=== PATIENT | female | born 1965 | race Caucasian/White ===

== ENCOUNTER → 2018-02-12 11:54 | Outpatient (CLI) | payer OTHER, SELFPAY ==
[2018-02-12 12:43] LABS: Add Manual Diff / Slide Review NO; Basophils Percent Auto 0.6 % (0-2); Eosinophils Percent Auto 1.9 % (2-4); Hematocrit 38.5 % (36-46); Lymphocytes Percent Auto 33.6 % (25-40); Mean Corpuscular HGB Conc 33.7 % (30-36); Mean Corpuscular Hemoglobin 28.2 PG (26-34); Mean Corpuscular Volume 83.8 fL (80-100); Monocytes Percent Auto 5.7 % (3-14); Neutrophils Absolute Auto 5400 /uL (3000-5900); Neutrophils Percent Auto 58.2 % (50-75); Platelet Count 240 X10^3/uL (150-400); Red Blood Cell Count 4.59 X10^6/uL (4.0-5.2); Red Cell Distribution Width 13.8 % (11.6-14.8); White Blood Cell Count 9.3 X10^3/uL (4.5-11.0)
== END ==
PROVIDERS: Family Provider Family Medicine; PCP Family Medicine; Visit Provider Orthopaedic Surgery Foot and Ankle Surgery
DX: S92.321A Displaced fracture of second metatarsal bone, right foot, initial encounter for closed fracture (principal); Z01.812 Encounter for preprocedural laboratory examination; Z01.818 Encounter for other preprocedural examination
CPT/HCPCS: 36415; 85025

== ENCOUNTER → 2018-05-17 11:38 | Outpatient (CLI) | payer OTHER, SELFPAY ==
[2018-05-17 12:34] LABS: Add Manual Diff / Slide Review NO; Basophils Percent Auto 0.8 % (0-2); Eosinophils Percent Auto 1.9 % (2-4); Hematocrit 40.1 % (36-46); Hemoglobin 13.5 g/dL (12.0-16.0); Lymphocytes Percent Auto 25.6 % (25-40); Mean Corpuscular HGB Conc 33.6 % (30-36); Mean Corpuscular Hemoglobin 28.1 PG (26-34); Mean Corpuscular Volume 83.7 fL (80-100); Neutrophils Absolute Auto 7000 /uL (3000-5900); Neutrophils Percent Auto 66.7 % (50-75); Platelet Count 242 X10^3/uL (150-400); Red Blood Cell Count 4.79 X10^6/uL (4.0-5.2); Red Cell Distribution Width 13.9 % (11.6-14.8); White Blood Cell Count 10.5 X10^3/uL (4.5-11.0)
[2018-05-17 12:59] LABS: Alanine Aminotransferase 24 IU/L (9-52); Albumin 4.7 g/dL (3.5-5.0); Albumin Globulin Ratio 1.7 (1.0-2.8); Alkaline Phosphatase 131 U/L (38-126); Aspartate Aminotransferase 23 IU/L (14-36); BUN Creatinine Ratio 17.5 (6-22); Bilirubin Total 0.6 mg/dL (0.2-1.3); Blood Urea Nitrogen 14 mg/dL (7-17); Calcium 9.7 mg/dL (8.4-10.2); Carbon Dioxide 31 mmol/L (22-32); Chloride 103 mmol/L (98-107); Cholesterol 156 mg/dL (140-199); Estimated Glomerular Filt Rate > 60.0 mL/min (>60); Globulin 2.8 g/dL (1.7-4.1); Glucose 101 mg/dL (70-100); HDL Cholesterol 58 mg/dL (40-60); HEMOLYSIS < 15 (0-50); LDL Cholesterol Calculated 74 mg/dL (<100); Potassium 3.9 mmol/L (3.4-5.1); Sodium 145 mmol/L (137-145); Total Protein 7.5 g/dL (6.3-8.2); Triglycerides 120 mg/dL (35-150)
[2018-05-17 13:30] LABS: Thyroid Stimulating Hormone 3.07 uIU/mL (0.47-4.68)
== END ==
PROVIDERS: Family Provider Family Medicine; PCP Family Medicine; Visit Provider Family Medicine
DX: Z00.00 Encounter for general adult medical examination without abnormal findings (principal)
CPT/HCPCS: 36415; 80053; 80061; 84443; 85025

== ENCOUNTER → 2018-06-10 15:07 | Outpatient (CLI) | payer OTHER, SELFPAY | PROVIDERS: PCP Family Medicine; Visit Provider Family Medicine | DX: M85.88 Other specified disorders of bone density and structure, other site (principal); Z78.0 Asymptomatic menopausal state; Z82.62 Family history of osteoporosis; Z85.3 Personal history of malignant neoplasm of breast | CPT/HCPCS: 77080 ==

== ENCOUNTER → 2018-07-20 15:46 | Outpatient (CLI) | payer OTHER, SELFPAY | PROVIDERS: PCP Family Medicine | DX: Z23 Encounter for immunization (principal) | CPT/HCPCS: 90471; 90686 ==

== ENCOUNTER → 2020-07-25 14:21 | Outpatient (CLI) | payer OTHER, SELFPAY ==
[2020-07-25 15:00] LABS: COVID19 -Nasal RAPID Negative (Negative)
== END ==
PROVIDERS: PCP Family Medicine; Visit Provider Nurse Practitioner
DX: Z11.59 Encounter for screening for other viral diseases (principal)
CPT/HCPCS: 87635

== ENCOUNTER → 2020-09-18 16:25 | Outpatient (CLI) | payer OTHER, SELFPAY ==
[2020-09-18] MEDS: COVID-19 VACC(MODERNA-1)/PF 100 MCG/0.5 ML VIAL IM (16:31)
== END ==
PROVIDERS: PCP Family Medicine; Visit Provider Internal Medicine
DX: Z23 Encounter for immunization (principal)
CPT/HCPCS: 0011A; 91301

== ENCOUNTER → 2020-10-15 16:04 | Outpatient (CLI) | payer OTHER, SELFPAY ==
[2020-10-15] MEDS: COVID-19 VACC #2, MRNA(MOD) 100 MCG/0.5 ML VIAL IM (16:11)
== END ==
PROVIDERS: PCP Family Medicine; Visit Provider Internal Medicine
DX: Z23 Encounter for immunization (principal)
CPT/HCPCS: 0012A; 91301

== ENCOUNTER → 2022-09-12 13:13 | Outpatient (CLI) | payer OTHER, SELFPAY | PROVIDERS: PCP Family Medicine; Referring Provider Internal Medicine; Visit Provider Internal Medicine | DX: Z23 Encounter for immunization (principal) | CPT/HCPCS: 90471; 90686 ==

== ENCOUNTER → 2022-12-31 12:22 | Outpatient (CLI) | payer OTHER, SELFPAY ==
[2022-12-31 12:55] LABS: Add Manual Diff / Slide Review NO; Basophils Absolute Auto 100 /uL (0-100); Eosinophils Absolute Auto 200 /uL (0-450); Eosinophils Percent Auto 2.3 % (2-4); Hematocrit 41.2 % (36-46); Hemoglobin 13.9 g/dL (12.0-16.0); Lymphocytes Absolute Auto 2900 /uL (1100-4500); Lymphocytes Percent Auto 33.3 % (25-40); Mean Corpuscular HGB Conc 33.6 % (30-36); Mean Corpuscular Hemoglobin 27.6 PG (26-34); Mean Corpuscular Volume 82.2 fL (80-100); Monocytes Absolute Auto 500 /uL (0-900); Monocytes Percent Auto 6.2 % (3-14); Neutrophils Absolute Auto 4900 /uL (1500-7000); Neutrophils Percent Auto 57.2 % (50-75); Platelet Count 252 X10^3/uL (150-400); Red Blood Cell Count 5.01 X10^6/uL (4.0-5.2); Red Cell Distribution Width 13.8 % (11.6-14.8); White Blood Cell Count 8.6 X10^3/uL (4.5-11.0)
[2022-12-31 13:26] LABS: Alanine Aminotransferase 24 IU/L (<35); Albumin 4.6 g/dL (3.5-5.0); Albumin Globulin Ratio 1.4 (1.0-2.8); Alkaline Phosphatase 123 U/L (38-126); Aspartate Aminotransferase 24 IU/L (14-36); BUN Creatinine Ratio 23.5 (6-22); Bilirubin Total 0.5 mg/dL (0.2-1.3); Blood Urea Nitrogen 19 mg/dL (7-17); Calcium 9.5 mg/dL (8.4-10.2); Carbon Dioxide 30 mmol/L (22-32); Chloride 103 mmol/L (98-107); Cholesterol 205 mg/dL (140-199); Estimated Glomerular Filt Rate > 60 mL/min (>60); Globulin 3.2 g/dL (1.7-4.1); Glucose 104 mg/dL (70-100); HDL Cholesterol 57 mg/dL (40-60); HEMOLYSIS < 15 (0-50); LDL Cholesterol Calculated 111 mg/dL (<100); Potassium 3.6 mmol/L (3.4-5.1); Sodium 140 mmol/L (137-145); Total Protein 7.8 g/dL (6.3-8.2); Triglycerides 187 mg/dL (35-150)
[2022-12-31 14:44] LABS: Appearance Urine UA CLEAR; Bilirubin Urine UA NEGATIVE (NEGATIVE); Color Urine UA YELLOW; Glucose Urine UA NEGATIVE (Negative); Ketones Urine UA NEGATIVE (NEGATIVE); Leukocyte Esterase Urine UA NEGATIVE (NEGATIVE); Nitrite Urine UA NEGATIVE (Negative); Occult Blood Urine UA NEGATIVE (Negative); Protein Urine UA NEGATIVE (Negative); Specific Gravity Urine UA >=1.030 (1.000-1.035); Urobilinogen Urine UA 0.2 E.U./dL (0.2)
[2022-12-31 14:47] LABS: RBC Urine None Seen (0-5/HPF); WBC Urine None Seen (0-5/HPF)
[2022-12-31 14:48] LABS: Bacteria Urine None Seen; Culture Indicated Urine Cult Not Indicated; Urine Comments Microscopic Normal
== END ==
PROVIDERS: PCP Physician Assistant; Referring Provider Physician Assistant; Visit Provider Physician Assistant
DX: R73.01 Impaired fasting glucose (principal); Z13.220 Encounter for screening for lipoid disorders; Z13.29 Encounter for screening for other suspected endocrine disorder
CPT/HCPCS: 36415; 80053; 80061; 81001; 84443; 85025

== ENCOUNTER → 2023-07-02 | Outpatient (CLI) | payer OTHER, SELFPAY | PROVIDERS: PCP Physician Assistant; Referring Provider Family Medicine; Visit Provider Family Medicine | DX: Z23 Encounter for immunization (principal) | CPT/HCPCS: 90471; 90686 ==

== ENCOUNTER → 2024-07-28 | Outpatient (CLI) | payer OTHER, SELFPAY | PROVIDERS: PCP Physician Assistant; Referring Provider Internal Medicine; Visit Provider Internal Medicine | DX: Z23 Encounter for immunization (principal) | CPT/HCPCS: 90471; 90656 ==

== ENCOUNTER 2024-10-11 23:48 | Emergency (ER) | payer OTHER, SELFPAY ==
[2024-10-11 23:56] VITALS: PULSE 77; O2SAT 100
[2024-10-12] VITALS (8 sets, daily range): BP systolic 110–181; BP diastolic 73–91; PULSE 74–83; RESP 18; TEMP 36.4; O2SAT 94–100; BMI 27.3
--- NOTE | 2024-10-12 00:02 | DI.US.S_ITS ---
PROCEDURE: US ABDOMEN LIMITED INDICATIONS: RUQ pain TECHNIQUE: Real-time scanning was performed of the abdominal and retroperitoneal organs, with image documentation. COMPARISON: None. FINDINGS: Liver: Liver is normal in size and homogeneous in echotexture. Gallbladder: Cholelithiasis. No wall thickening. No pericholecystic edema. Negative sonographic Galeano's sign. Biliary ducts: Intrahepatic bile ducts are non-dilated. Extrahepatic bile duct caliber measures 5.0 mm. Normal is 6-7 mm or less in diameter, or 10 mm or less post-cholecystectomy. Pancreas: Visualized portions of the pancreas are sonographically normal. Miscellaneous: No free abdominal fluid. IMPRESSION: Cholelithiasis without sonographic evidence of acute cholecystitis. Approved by: Halina Gomez M.D.,Ph.D. on 10/12/2024 at 0:49
--- NOTE | 2024-10-12 00:02 | ED.ABDPAIN ---
HPI - Abdominal Pain General Chief Complaint: Abdominal Pain Stated Complaint: abd pain Time Seen by Provider: 10/11/24 23:57 Source: patient, EMS, RN notes reviewed and old records reviewed Mode of arrival: EMS Limitations: no limitations History of Present Illness HPI narrative: 58-year-old female on Lexapro and Prilosec presents with complaint of abdominal pain describes sort of epigastric radiating across the right and left upper quadrants. Did have a little bit up towards the chest but states it is currently just localized and right and left upper quadrants but more in the right. Patient states was awake but lying in bed when pain kind of came suddenly onset peaked started improve a little bit but was quite intense. They did not have a similar episode 2 or 3 days ago but not as intense. Patient states he was nauseated but did not have any vomiting. No fevers or chills. No chest pain or shortness of breath currently. No issues with bowel movements or urination. Patient states takes Lexapro and Prilosec but no other daily medications. Has had prior bilateral mastectomy for breast cancer remotely, shoulder surgery, bilateral oophorectomy. No reported drug allergies. No tobacco, no regular alcohol, no recreational drugs. Patient received 50 mcg of fentanyl EN route which they have found helpful states still feels like they have done a ton of sit-ups but otherwise feels improved. Related Data Home Medications Medication Instructions Recorded Confirmed clonidine HCl 0.1 mg tablet 0.1 mg PO BID #0 tabs 06/15/13 08/07/24 escitalopram oxalate 10 mg tablet 10 mg PO QDAY ##0 07/13/17 08/07/24 (Lexapro) omeprazole 40 mg capsule,delayed 20 mg PO Q DAY ##0 07/13/17 08/07/24 release Previous Rx's Medication Instructions Recorded methocarbamol 500 mg tablet 500 mg PO TID PRN Back pain, 12/18/23 muscle spasms #30 tabs methylprednisolone 4 mg tablets in See Rx Instructions PO PER PKG DIR 12/18/23 a dose pack (Medrol (Rubens)) #21 ea estradiol 2 mg (7.5 mcg/24 hour) 1 vag ring vaginal [id number] #1 ea 02/14/24 vaginal ring (Estring) amoxicillin 875 mg-potassium 1 tab PO BID #20 tabs 08/07/24 clavulanate 125 mg tablet hydrocodone 5 mg-acetaminophen 325 1 tab PO Q6H PRN pain #10 tabs 10/12/24 mg tablet Allergies Allergy/AdvReac Type Severity Reaction Status Date / Time oxycodone [From PERCOCET] Allergy Intermediate Verified 10/12/24 01:17 soy Allergy Mild Verified 10/12/24 01:17 Anesthetics - Amide Type - AdvReac Severe SENSITIVE Verified 10/12/24 01:17 Select A [Anesthetics - Amide Type] Anesthetics - Michelle Type- AdvReac Severe SENSITIVE Verified 10/12/24 01:17 Parabens [Anesthetics - Michelle Type] Review of Systems Review of Systems ROS Unobtainable: All systems reviewed & are unremarkable except as noted in HPI and below Patient History Social History Smoking Status: Never smoker Smoking Status: Never smoker Exam Narrative Exam Narrative: GENERAL: Alert and oriented x three, female in mild distress HEENT: Head normocephalic, atraumatic, EOMI, pupils reactive, face symmetric, moist mucous membranes NECK: Supple, full range of motion CARDIOVASCULAR: Regular rate and rhythm without murmurs, rubs or gallops. RESPIRATORY: Breath sounds equal bilaterally, no wheezes rales or rhonchi. ABDOMEN: Soft, positive for right upper quadrant tenderness. Normoactive bowel sounds all 4 quadrants. No guarding or rebound, rigidity, no mass : No CVA tenderness EXTREMITIES: Normal range of motion, no clubbing or edema. Neurovascularly intact NEUROLOGICAL: Cranial nerves II through XII grossly intact. Moving all extremities SKIN: Warm, dry, no petechiae, no rashes or lesions. Initial Vital Signs Initial Vital Signs: Vital Signs Pulse Rate 77 10/11/24 23:56 Pulse Oximetry 100 10/11/24 23:56 Course Orders Ordered: ED Orders 10/12/24 00:02 US abdomen limited Stat Complete Blood Count AUTO DIFF Stat Comprehensive Metabolic Panel Stat Lipase Stat Troponin & CK Cardiac Panel Stat EKG-12 Lead Stat 10/12/24 01:42 Trop I [Troponin I] Stat Discontinued Medications Hydrocodone Bitart/Acetaminophen (Hydrocodone/Acet 5/325 Prepack) 1 bottle MISC DIRECTED ONE Stop: 10/12/24 03:06 Last Admin: 10/12/24 03:09 Dose: 1 bottle Ketorolac Tromethamine (Ketorolac 30 Mg/Ml Vial) 15 mg IV NOW ONE Stop: 10/12/24 00:43 Last Admin: 10/12/24 00:47 Dose: 15 mg Documented By: THONG Morphine Sulfate (Morphine 4 Mg/Ml Inj) 4 mg IV NOW ONE Stop: 10/12/24 01:08 Last Admin: 10/12/24 01:11 Dose: 4 mg Documented By: THONG Ondansetron HCl (Ondansetron 4 Mg/2 Ml Inj) 4 mg IV NOW ONE Stop: 10/12/24 00:03 Last Admin: 10/12/24 01:47 Dose: Not Given Documented By: THONG Potassium Chloride (Potassium Chloride 20 Meq Tab) 40 meq PO NOW ONE Stop: 10/12/24 01:05 Last Admin: 10/12/24 03:09 Dose: 40 meq Vital Signs Vital signs: Vital Signs - 8 hr 10/11/24 23:56 10/12/24 00:00 10/12/24 00:00 Temperature Pulse Rate 77 80 Respiratory Rate Blood Pressure 163/84 H Pulse Oximetry 100 96 Oxygen Delivery Method 10/12/24 00:03 10/12/24 00:30 10/12/24 00:30 Temperature 97.5 F L Pulse Rate 77 74 Respiratory Rate 18 18 Blood Pressure 181/91 H 157/89 H Pulse Oximetry 98 94 Oxygen Delivery Method Room Air 10/12/24 01:00 10/12/24 01:00 10/12/24 01:30 Temperature Pulse Rate 76 75 Respiratory Rate Blood Pressure 146/86 H Pulse Oximetry 100 98 Oxygen Delivery Method 10/12/24 01:30 10/12/24 02:00 10/12/24 02:00 Temperature Pulse Rate 76 Respiratory Rate Blood Pressure 136/79 123/73 Pulse Oximetry 94 Oxygen Delivery Method 10/12/24 02:30 10/12/24 02:30 10/12/24 03:00 Temperature Pulse Rate 77 83 Respiratory Rate Blood Pressure 112/76 Pulse Oximetry 95 94 Oxygen Delivery Method 10/12/24 03:00 Temperature Pulse Rate Respiratory Rate 18 Blood Pressure 110/77 Pulse Oximetry Oxygen Delivery Method MDM - Abdominal Pain Lab Data 10/11/24 23:35 10/11/24 23:35 Labs: Lab Results 10/11/24 10/12/24 Range/Units 23:35 01:42 WBC 11.7 H (4.5-11.0) X10^3/uL RBC 5.02 (4.0-5.2) X10^6/uL Hgb 13.8 (12.0-16.0) g/dL Hct 41.9 (36-46) % MCV 83.4 (80-100) fL MCH 27.5 (26-34) PG MCHC 32.9 (30-36) % RDW 14.9 H (11.6-14.8) % Plt Count 258 (150-400) X10^3/uL Neut % (Auto) 51.3 (50-75) % Lymph % (Auto) 39.0 (25-40) % [place] % (Auto) 6.6 (3-14) % Eos % (Auto) 2.1 (2-4) % Baso % (Auto) 1.0 (0-2) % Neut # (Auto) 6000 (3304-8705) /uL Lymph # (Auto) 4500 (0932-0836) /uL [place] # (Auto) 800 (0-900) /uL Eos # (Auto) 200 (0-450) /uL Baso # (Auto) 100 (0-100) /uL Sodium 138 (137-145) mmol/L Potassium 3.2 L (3.4-5.1) mmol/L Chloride 103 (98-107) mmol/L Carbon Dioxide 22 (22-32) mmol/L BUN 22 H (7-17) mg/dL Creatinine 0.87 (0.52-1.04) mg/dL Estimated GFR > 60 (>60) mL/min BUN/Creatinine Ratio 25.3 H (6-22) Glucose 133 H (70-100) mg/dL Calcium 10.0 (8.4-10.2) mg/dL Total Bilirubin 0.4 (0.2-1.3) mg/dL AST 62 H (14-36) IU/L ALT 38 H (<35) IU/L Alkaline Phosphatase 128 H (38-126) U/L Total Creatine Kinase 51 (30-135) U/L Troponin I < 0.012 < 0.012 (0.01-0.034) ng/mL Total Protein 7.8 (6.3-8.2) g/dL Albumin 4.8 (3.5-5.0) g/dL Globulin 3.0 (1.7-4.1) g/dL Albumin/Globulin Ratio 1.6 (1.0-2.8) Lipase 214 (23-300) U/L ECG Data Attestation: I personally reviewed and interpreted this ECG as follows: Prior ECG tracings: available for review Interpretation: Sinus rhythm rate of 75 IN 142 QRS of 92 QTC of 477, no acute ST elevation or depression, patient has prior from 07/23/2017 T-waves appear inverted V1 through V3 comparison to that EKG. MDM Narrative Medical decision making narrative: 58-year-old female presents with complaint of sudden onset upper abdominal pain patient was quite tender and right upper quadrant on examination. Labs show white count 11.7 hemoglobin of 13 platelets of 258. Potassium is 3.2 replaced orally, BUN 22 creatinine 0.87 glucose is 133 bilirubin is 0.4 AST 62 with a ALT of 38 alk-phos of 128 lipase is negative at 214, total CK is 51 with a troponin less than 0.012. Troponin repeat is 0.012 EKG shows sinus rhythm no acute ST elevation depression T-waves appear inverted V1 through V3 compared to 2017. Right upper quadrant abdominal ultrasound shows cholelithiasis no wall thickening but no pericholecystic edema negative sonographic Galeano's sign no free fluid. Point of care urine Patient received ondansetron, ketorolac and morphine. Patient is feeling improved currently after medications reviewed findings from today does have gallstones slightly elevated liver enzymes but normal lipase bilirubin patient was tender right upper quadrant. Patient does not appear acute cholecystitis or any obstructive changes workup discussed with patient she is more comfortable now we will have her discharged home but follow up with General surgery with return precautions. Discharge Plan Departure Patient Disposition: Home Clinical Impression: Cholelithiasis Instructions: DI for Gallstones Activity Restrictions/Additional Instructions: Please call to follow up with General surgery, contacts included below please call later today. Your workup today did show gallstones and your liver enzymes were very mildly elevated. Your potassium was slightly low at 3.2 and was replaced orally here. You can take ibuprofen up to 600 mg every 6 hours. You can take [place] 1-2 tablets every 6 hours as needed for pain. This medication can make you sleepy do not drive, perform hazardous activities or make any major decisions while taking it. This medication will make you constipated please take a stool softener once to twice daily until stools are soft and regular. [facility] Please return for fevers, new or worsening abdominal back or flank pain, vomiting, lightheadedness or passing out, new chest pain or shortness of breath, black or bloody stools or other new or concerning changes. Prescriptions: New hydrocodone-acetaminophen 5-325 mg tablet 1 tab PO Q6H PRN (Reason: pain) Qty: 10 0RF No Action methylprednisolone [Medrol (Rubens)] 4 mg tablets,dose pack See Rx Instructions PO PER PKG DIR Qty: 21 0RF Rx Instructions: PO PER PKG DIR for 6 days methocarbamol 500 mg tablet 500 mg PO TID PRN (Reason: Back pain, muscle spasms) Qty: 30 0RF Rx Instructions: Caution. May cause sedation. amoxicillin-pot clavulanate 875-125 mg tablet 1 tab PO BID Qty: 20 0RF clonidine HCl 0.1 MG tablet 0.1 mg PO BID Qty: 0 escitalopram oxalate [Lexapro] 10 MG tablet 10 mg PO QDAY Qty: 0 omeprazole 40 MG capsule,delayed release(DR/EC) 20 mg PO Q DAY Qty: 0 Estring 2 mg (7.5 mcg /24 hour) ring 1 vag ring vaginal [id number] Qty: 1 3RF Referrals: Avelina Rinaldi PA-C [Primary Care Provider] - Carloz Zayas MD [Physician] - Stand Alone Forms: Patient Portal/API/Survey
--- NOTE | 2024-10-12 00:09 | EKG_ITS ---
[address] [address] Test Date: 2024-10-12 Pat Name: Nicky Wallis Department: [facility] Room: Gender: Female Nursing Informatics Analyst: MISTY : 1965 Requested By: Order Number: [id number] Reading MD: Daniel Chacon Measurements Intervals [place] Rate: 75 P: 19 DE: 142 QRS: -2 QRSD: 92 T: 60 QT: 428 QTc: 477 Interpretive Statements Normal sinus rhythm Nonspecific T wave abnormality Prolonged QT Electronically Signed On 10-12-2024 20:04:38 PST by Daniel Chacon
[2024-10-12 00:14] LABS: Add Manual Diff / Slide Review NO; Basophils Absolute Auto 100 /uL (0-100); Eosinophils Absolute Auto 200 /uL (0-450); Eosinophils Percent Auto 2.1 % (2-4); Hematocrit 41.9 % (36-46); Hemoglobin 13.8 g/dL (12.0-16.0); Lymphocytes Absolute Auto 4500 /uL (1100-4500); Mean Corpuscular HGB Conc 32.9 % (30-36); Mean Corpuscular Hemoglobin 27.5 PG (26-34); Mean Corpuscular Volume 83.4 fL (80-100); Monocytes Absolute Auto 800 /uL (0-900); Monocytes Percent Auto 6.6 % (3-14); Neutrophils Absolute Auto 6000 /uL (1500-7000); Neutrophils Percent Auto 51.3 % (50-75); Platelet Count 258 X10^3/uL (150-400); Red Blood Cell Count 5.02 X10^6/uL (4.0-5.2); Red Cell Distribution Width 14.9 % (11.6-14.8); White Blood Cell Count 11.7 X10^3/uL (4.5-11.0)
[2024-10-12 00:21] LABS: Alanine Aminotransferase 38 IU/L (<35); Albumin 4.8 g/dL (3.5-5.0); Albumin Globulin Ratio 1.6 (1.0-2.8); Alkaline Phosphatase 128 U/L (38-126); Aspartate Aminotransferase 62 IU/L (14-36); BUN Creatinine Ratio 25.3 (6-22); Bilirubin Total 0.4 mg/dL (0.2-1.3); Blood Urea Nitrogen 22 mg/dL (7-17); Carbon Dioxide 22 mmol/L (22-32); Chloride 103 mmol/L (98-107); Creatine Kinase 51 U/L (30-135); Estimated Glomerular Filt Rate > 60 mL/min (>60); Glucose 133 mg/dL (70-100); HEMOLYSIS 17 (0-50); Lipase 214 U/L (23-300); Potassium 3.2 mmol/L (3.4-5.1); Sodium 138 mmol/L (137-145); Total Protein 7.8 g/dL (6.3-8.2)
[2024-10-12 00:32] LABS: Troponin I < 0.012 ng/mL (0.01-0.034)
[2024-10-12] MEDS: KETOROLAC 30 MG/ML VIAL 15 MG IV (00:47)
[2024-10-12] MEDS: MORPHINE 4 MG/ML INJ IV (01:11)
[2024-10-12 02:12] LABS: Troponin I < 0.012 ng/mL (0.01-0.034)
[2024-10-12] MEDS: POTASSIUM CHLORIDE 20 MEQ TAB 40 MEQ PO (03:09)
[2024-10-12] MEDS: HYDROCODONE/ACET 5/325 PREPACK 1 BOTTLE MISC (03:09)
== END 2024-10-12 03:18 | disposition home or self-care (01) ==
PROVIDERS: Emergency Provider Emergency Medicine; PCP Physician Assistant
DX: K80.20 Calculus of gallbladder without cholecystitis without obstruction (principal); R10.9 Unspecified abdominal pain
CPT/HCPCS: 36415; 76705; 80053; 82550; 83690; 84484; 85025; 93005; 96374; 96375; 99284; J1885; J2270

== ENCOUNTER 2024-11-18 22:53 | Emergency (ER) | payer OTHER, SELFPAY ==
[2024-11-18 22:59] VITALS: BP 148/79; PULSE 86; RESP 18; TEMP 36.1; O2SAT 100; BMI 26.4
[2024-11-18] MEDS: ONDANSETRON 4 MG/2 ML INJ IV (23:15)
[2024-11-18 23:28] LABS: Alanine Aminotransferase 60 IU/L (<35); Albumin 4.6 g/dL (3.5-5.0); Albumin Globulin Ratio 1.6 (1.0-2.8); Alkaline Phosphatase 138 U/L (38-126); Aspartate Aminotransferase 116 IU/L (14-36); BUN Creatinine Ratio 25.3 (6-22); Bilirubin Total 0.5 mg/dL (0.2-1.3); Blood Urea Nitrogen 24 mg/dL (7-17); Calcium 9.5 mg/dL (8.4-10.2); Carbon Dioxide 27 mmol/L (22-32); Chloride 102 mmol/L (98-107); Estimated Glomerular Filt Rate > 60 mL/min (>60); Globulin 2.9 g/dL (1.7-4.1); Glucose 99 mg/dL (80-110); HEMOLYSIS < 15 (0-50); Lipase 155 U/L (23-300); Potassium 3.3 mmol/L (3.4-5.1); Sodium 141 mmol/L (137-145); Total Protein 7.5 g/dL (6.3-8.2)
[2024-11-18 23:31] LABS: Add Manual Diff / Slide Review NO; Basophils Absolute Auto 100 /uL (0-100); Basophils Percent Auto 0.5 % (0-2); Eosinophils Absolute Auto 200 /uL (0-450); Eosinophils Percent Auto 1.4 % (2-4); Hematocrit 39.8 % (36-46); Hemoglobin 13.2 g/dL (12.0-16.0); Lymphocytes Absolute Auto 5000 /uL (1100-4500); Lymphocytes Percent Auto 30.1 % (25-40); Mean Corpuscular HGB Conc 33.2 % (30-36); Mean Corpuscular Hemoglobin 27.8 PG (26-34); Mean Corpuscular Volume 83.8 fL (80-100); Monocytes Absolute Auto 700 /uL (0-900); Monocytes Percent Auto 4.5 % (3-14); Neutrophils Absolute Auto 10600 /uL (1500-7000); Neutrophils Percent Auto 63.5 % (50-75); Platelet Count 253 X10^3/uL (150-400); Red Blood Cell Count 4.75 X10^6/uL (4.0-5.2); Red Cell Distribution Width 14.6 % (11.6-14.8); White Blood Cell Count 16.7 X10^3/uL (4.5-11.0)
--- NOTE | 2024-11-20 14:51 | P.HP_ITS ---
History of Present Illness History of Present Illness Date Patient Seen: 11/20/24 Time Patient Seen: 14:51 Chief complaint: Gallbladder px Narrative: 59-year-old female with known symptomatic cholelithiasis was on the schedule for Wednesday of this week for laparoscopic cholecystectomy presented to the emergency department over the weekend. Her symptoms at that time were increased pain, nausea and vomiting. She had labs drawn which demonstrated leukocytosis and mildly elevated liver function tests, but she left without being seen after waiting for over 2 hours in the ER. She presented to work today and 1 of the ui application developer felt that she looked sickly and asked me if we could take out her gallbladder today rather than waiting 2 days until Wednesday. I was not informed of the leukocytosis over the weekend until today, so I felt this was reasonable and would have been willing to take out her gallbladder over the weekend if she were willing to stay. [facility] Medical History (Updated 11/20/24 @ 14:53 by Omid Acuna MD) Acute and chronic cholecystitis Depression Breast cancer Surgical History Hx of shoulder surgery Hx of bilateral oophorectomy Hx of bilateral mastectomy (2008) Social History household members: spouse Smoking Status: Never smoker Meds Home Medications and Allergies Home Medications Medication Instructions Recorded Confirmed Type escitalopram oxalate 10 mg tablet 10 mg PO QDAY ##0 07/13/17 11/20/24 History (Lexapro) omeprazole 40 mg capsule,delayed 20 mg PO Q DAY ##0 07/13/17 11/20/24 History release estradiol 2 mg (7.5 mcg/24 hour) 1 vag ring vaginal [id number] #1 ea 02/14/24 08/07/24 Rx vaginal ring (Estring) hydrocodone 5 mg-acetaminophen 325 1 tab PO Q6H PRN pain #10 tabs 10/12/24 Rx mg tablet semaglutide 2 mg/dose (8 mg/3 mL) 2 mg SUBCUT QWEEK 10/19/24 11/20/24 History subcutaneous pen injector Allergies Allergy/AdvReac Type Severity Reaction Status Date / Time soy Allergy Mild Verified 11/20/24 14:47 Anesthetics - Amide Type - AdvReac Severe SENSITIVE Verified 11/20/24 14:47 Select A [Anesthetics - Amide Type] Anesthetics - Michelle Type- AdvReac Severe SENSITIVE Verified 11/20/24 14:47 Parabens [Anesthetics - Michelle Type] oxycodone [From PERCOCET] AdvReac Intermediate ITCHING Verified 11/20/24 14:47 Review of Systems Review of Systems ROS: Yes All systems reviewed with the patient and are negative except as otherwise documented Exam Vital Signs (past 8 hours): Oxygen Delivery Method Room Air Narrative Exam Narrative: Gen: NAD, sitting comfortably in bed, appears well HEENT: Sclera are anicteric, head is normocephalic and atraumatic, trachea is midline. CV: RRR, no JVD Resp: clear to auscultation bilaterally, equal chest wall movement bilaterally Abd: soft, nontender, normoactive bowel sounds Ext: no edema, full range of motion Neuro: Cranial nerves II-XII grossly intact, no focal deficits Skin: No erythema or ecchymosis Objective Labs 11/18/24 23:10 11/18/24 23:10 Assessment & Plan Assessment and plan (1) Acute and chronic cholecystitis: Status: Acute Assessment & Plan narrative: Risks, benefits, alternatives of laparoscopic cholecystectomy with cholangiography were explained to the patient. Risks of nonoperative management including jaundice, pancreatitis and worsening cholecystitis were all explained to the patient. Risks of surgery include bleeding, infection, bile leaks, retained stones, need for ERCP, incisional hernia, injury to related structures, failure to relieve symptoms and worsening reflux were all explained to the patient. Patient agrees to proceed with laparoscopic cholecystectomy with cholangiography Time-Based Coding :: [TOTAL MINUTES] spent with patient and on the chart (including review of chart, obtaining history, exam, reviewing outside data, placing orders, documenting exam and treatment plan, and counseling patient) on [DATE]. PROFEE Lime Trimmer Document charge(s): Yes Charge Codes Initial inpatient/observation care: [id number]
== END 2024-11-19 00:30 | disposition left against medical advice (07) ==
PROVIDERS: Emergency Provider Emergency Medicine; PCP Physician Assistant
DX: R10.9 Unspecified abdominal pain (principal)
CPT/HCPCS: 80053; 83690; 85025; 99283; J2405

== ENCOUNTER 2024-11-20 14:09 | Day surgery (SDC) | payer OTHER, SELFPAY ==
[2024-10-19 12:45] VITALS: BMI 26.4
[2024-11-20] VITALS (9 sets, daily range): BP systolic 105–134; BP diastolic 67–86; PULSE 69–88; RESP 13–21; TEMP 36.1–36.6; O2SAT 96–99; BMI 26.4
--- NOTE | 2024-11-20 | PATH_ITS ---
[facility] Accession Number: [id number] No. of containers..01 Tissue . 01 Material submitted: . gallbladder - GALLBLADDER . 01 Diagnosis: GALLBLADDER, CHOLECYSTECTOMY: Mild chronic calculous cholecystitis with reactive changes. Negative for dysplasia and malignancy. MRV 11/22/2024 1315 Local . 01 Electronically signed: . Roney Garcia MD, Pathologist NPI- [id number] . 01 Gross description: . Received in formalin with two patient identifiers and gallbladder, is an intact gallbladder, 10.5 x 2.5 x 2.3 cm, with an unremarkable external surface. The cystic duct margin is inked blue, and no pericystic lymph node is identified. The lumen contains multiple yellow bosselated calculi, up to 0.5 cm in greatest dimension not grossly obstructing the cystic duct, and admixed with green mucoid bile. The mucosa is green and velvety with multiple yellow areas of discoloration and no polyps or lesions identified. The senior average 0.3 cm thick. Engineer Remote [employer] sections to include the cystic duct margin and full thickness sections are submitted in A1. ([id number]) /MRV 11/21/20244 Local . 01 Pathologist provided ICD-10: K80.10, K80.20 . 01 CPT . 368976 Specimen Comment: A courtesy copy of this report has been sent to [facility] Pathology Performed at: [address] [address], [place], [place] [id number] MD Farooq Benitez MD Phone: [phone]
--- NOTE | 2024-11-20 | DI.RAD.S_ITS ---
PROCEDURE: XR CHOLANGIOGRAM OPERATIVE INDICATIONS: OR COMPARISON: [facility], US, US ABDOMEN LIMITED, 10/12/2024, 0:23. FINDINGS: Biliary ducts: The surgeon injected contrast into the biliary ducts after cannulation of the cystic duct stump. Visualized intra- and extrahepatic bile ducts are normal in caliber, without strictures. No intraluminal filling defects to suggest retained ductal stones or sludge. No evidence for iatrogenic ductal injury. Duodenum: Contrast flows promptly through the sphincter of Oddi into the duodenum, which appears normal in caliber. IMPRESSION: Intraoperative cholangiogram without visualized filling defect. Recommend correlation to real-time operative report. Dictated by: Carolynn Blunt M.D. on 11/21/2024 at 12:48 Approved by: Carolynn Blunt M.D. on 11/21/2024 at 12:48
[2024-11-20] MEDS: LACTATED RINGERS 1,000 ML 42 ML IV (14:46)
[2024-11-20] MEDS: TIZANIDINE 4 MG TABLET PO (15:04)
[2024-11-20] MEDS: CEFAZOLIN 2 GM/100 ML PREMIX 100 ML IV (15:35)
--- NOTE | 2024-11-20 15:50 | SUR.OPER ---
Supine on padded OR bed, head on pillow, Right arm tucked and paded, left arm secured on padded arm boards at <90 degrees abduction, legs uncrossed, safety belt at thigh, tape over blanket over lower legs. Foot board secured at base of bed with feet flat against it
[2024-11-20] MEDS: BUPIVACAINE 0.5% W/ EPI (PF) 30 ML VIAL INJ (15:57)
[2024-11-20] MEDS: iopamidoL 30 ML VIAL INJ (15:58)
--- NOTE | 2024-11-20 16:18 | PM.OP.1 ---
Operative Date/Time/Diagnoses Date of procedure: 11/20/24 Time of procedure: 16:19 Pre-op diagnosis: acute on chronic cholecystitis Post-op diagnosis: same Procedure & Clinicians Procedure: Laparoscopic cholecystectomy with cholangiography Same procedure as scheduled: Yes Indications: Acute on chronic cholecystitis. Presented to the ER over the weekend with a white count, worsening nausea and vomiting Surgeon: Omid Acuna Click Yes if Unassisted: Yes Anesthesia Type: General Operative Notes Findings: Normal cholangiogram Closure Type: primary Specimen(s): other (Gallbladder) Estimated Blood Loss (mL): 5 Procedure in detail: Consent was obtained. Patient was brought into the operating room suite. Patient was placed in the supine position with the arms out. General anesthesia was induced. Time-out was performed. The abdomen was prepped and draped in the usual fashion. Total of 30 mL of 0.5% [place] were infiltrated in all trocar sites. 5 mm optical trocar was placed in the left upper quadrant. Pneumoperitoneum was achieved. The abdomen was inspected. Abnormalities noted included adhesions to the gallbladder. 11 mm trocar placed in the umbilicus. Two additional 5 mm trocars were placed in the right upper quadrant. The gallbladder was grasped, retracted laterally and cephalad. The medial and lateral attachments of the gallbladder were opened revealing a critical view of the single cystic duct and single cystic artery. The artery was doubly clipped and divided. The duct was clipped at the junction of the infundibulum. A cystic ductotomy was made through which a cholangiogram was performed. Cholangiogram showed prompt emptying into the duodenal with bilateral intrahepatic ductal filling and no evidence of strictures or stones. Thus completed the cholangiography and the catheter was removed. Three clips were then applied to the cystic duct stump. Bovie electrocautery was used to remove the gallbladder from the liver bed. Hemostasis was achieved. The gallbladder was placed in an endo-pouch and brought out through the umbilical trocar. The umbilical trocar was closed with an 0 Vicryl on a Chidi-Pam suture Passer. Pneumoperitoneum was relieved. Skin was closed with 4-0 Monocryl and Dermabond. Patient tolerated procedure well was transferred to PACU in stable condition for anticipated same-day discharge. Complications: none Post-operative Condition: stable Disposition: PACU Plan for aftercare: home
[2024-11-20] MEDS: fentaNYL 100 MCG/2 ML INJ IV (16:34)
[2024-11-20] MEDS: HYDROCODONE/ACET 5/325 TABLET 1 TAB PO (16:46)
[2024-11-20] MEDS: ONDANSETRON 4 MG/2 ML INJ IV (17:05)
== END 2024-11-20 17:27 | disposition home or self-care (01) ==
PROVIDERS: PCP Physician Assistant; Referring Provider Surgery; Visit Provider Surgery
PROC: 0FT44ZZ Resection of Gallbladder, Percutaneous Endoscopic Approach (ICD-10-PCS; CPT 47563; principal; 2024-11-20 14:00)
DX: K81.2 Acute cholecystitis with chronic cholecystitis (principal)
CPT/HCPCS: 47563; 74300; J0330; J0690; J1100; J1885; J2250; J2405; J2704; J3010; Q9967

== ENCOUNTER → 2025-06-01 11:05 | Outpatient (CLI) | payer OTHER, SELFPAY ==
[2025-06-01 12:41] LABS: Alanine Aminotransferase 27 IU/L (<35); Albumin 4.9 g/dL (3.5-5.0); Albumin Globulin Ratio 1.8 (1.0-2.8); Alkaline Phosphatase 111 U/L (38-126); Blood Urea Nitrogen 22 mg/dL (7-17); Calcium 10.0 mg/dL (8.4-10.2); Carbon Dioxide 26 mmol/L (22-32); Chloride 102 mmol/L (98-107); Cholesterol 232 mg/dL (140-199); Estimated Glomerular Filt Rate > 60 mL/min (>60); Globulin 2.7 g/dL (1.7-4.1); Glucose 94 mg/dL (70-99); HDL Cholesterol 86 mg/dL (40-60); HEMOLYSIS < 15 (0-50); Potassium 4.2 mmol/L (3.4-5.1); Sodium 140 mmol/L (137-145); Total Protein 7.6 g/dL (6.3-8.2); Triglycerides 196 mg/dL (35-150)
[2025-06-01 12:47] LABS: Hemoglobin A1C% w Est Avg Glu 5.7 % (4.0-6.0)
== END ==
PROVIDERS: PCP Family Medicine; Referring Provider Family Medicine; Visit Provider Family Medicine
DX: Z13.220 Encounter for screening for lipoid disorders (principal); R73.9 Hyperglycemia, unspecified; R74.8 Abnormal levels of other serum enzymes
CPT/HCPCS: 36415; 80053; 80061; 83036